=== PATIENT | female | born 1960 | race Caucasian/White ===

== ENCOUNTER → 2017-12-09 | Outpatient (CLI) | payer OTHER ==
[~2017-12-09] MED LIST: AMOX500 PO; ASPI81CH PO; ATOR10 PO; CARV6.25 PO; CODGUAEL PO; HYDACE5 PO; HYDCHL25 PO; IBUPROFEN; LISI20 PO; MULVIT; Multivitamin1 EAC1 PO; NAPR220 PO; Norco 5-325 Ta1 EACH PO; Pepcid40 MG PO; Percocet 5-3251 EACH PO; TRAM50 PO; Zofran Odt4 MG SL
[2017-12-11 02:44] LABS: Source Cervix
== END ==
LOC: LAB SHORT 16:00 → LAB 16:00
PROVIDERS: Nurse Practitioner
DX: Z01.419 Encounter for gynecological examination (general) (routine) without abnormal findings (principal)
CPT/HCPCS: G0145

== ENCOUNTER 2020-11-07 07:33 | Day surgery (SDC) | payer BC, SELFPAY ==
[2020-12-01] MEDS ORDERED: GABA100 PO (14:50)
[2020-12-01] MEDS ORDERED: MULVITA PO (14:50)
[2020-12-01] MEDS ORDERED: NYAMYC15 G1 TOP (14:51)
== END 2020-11-07 22:53 | disposition home or self-care (01) ==
LOC: MOI US 07:33 → MOI MAM 08:00 → MOI US 08:00
DX: C50.411 Malignant neoplasm of upper-outer quadrant of right female breast (principal); Z17.0 Estrogen receptor positive status [ER+]
CPT/HCPCS: 19083; 77065; 88305; 88342; 88360; A4648

== ENCOUNTER 2020-11-28 07:39 | Day surgery (SDC) | payer BC, SELFPAY ==
[2020-12-01] MEDS ORDERED: MULVITA PO (14:50)
[2020-12-01] MEDS ORDERED: GABA100 PO (14:50)
[2020-12-01] MEDS ORDERED: NYAMYC15 G1 TOP (14:51)
== END 2020-11-28 22:58 | disposition home or self-care (01) ==
LOC: MOI US 07:39 → MOI MAM 08:00 → MOI US 22:58 → NM 12-08 09:00
DX: C50.411 Malignant neoplasm of upper-outer quadrant of right female breast (principal); Z17.0 Estrogen receptor positive status [ER+]
CPT/HCPCS: 19285; 77065

== ENCOUNTER 2020-12-08 08:33 | Day surgery (SDC) | payer BC, SELFPAY ==
[~2020-12-08] VITALS: Ht 167.6 cm; Wt 134.9 kg
[~2020-12-08 08:33] MED LIST changes: +GABA100 PO; +MULVITA PO; +NYAMYC15 G1 TOP
--- NOTE | 2020-12-08 10:57 | NUR ---
Ambulatory in Day Surgery History, Chart, Medications and Allergies reviewed before start of procedure.Pre-Op teaching done. Pt verbalizes understanding. Patient States Post-Procedure ride home has been arranged.
--- NOTE | 2020-12-08 13:02 | NUR ---
12/08/20 1302 CAROL,JESSICA PTS RIGHT BREAST LUMPECTOMY SPECIMEN SENT TO XRAY PER DR MANRIQUEZ ORDER AT 1300.
--- NOTE | 2020-12-08 15:02 | NUR ---
Discharge instructions reviewed with patient. Patient verbalizes understanding. Copy given to patient to take home. Patient States Post-Procedure ride home has been arranged. Discharged via wheelchair to private car for ride home.
== END 2020-12-08 15:05 | disposition home or self-care (01) ==
LOC: ORSCMMR 08:33 → ORD 10:00 → ORSCMMR 15:05
PROVIDERS: Surgery
PROC: 07B50ZX Excision of Right Axillary Lymphatic, Open Approach, Diagnostic (ICD-10-PCS; principal; 2020-12-08 10:15)
PROC: 0HBT0ZZ Excision of Right Breast, Open Approach (ICD-10-PCS; principal; 2020-12-08 10:15)
DX: C50.411 Malignant neoplasm of upper-outer quadrant of right female breast (principal); Z17.0 Estrogen receptor positive status [ER+]; C77.3 Secondary and unspecified malignant neoplasm of axilla and upper limb lymph nodes; I10 Essential (primary) hypertension; E78.5 Hyperlipidemia, unspecified; K21.9 Gastro-esophageal reflux disease without esophagitis; E66.01 Morbid (severe) obesity due to excess calories; Z68.42 Body mass index [BMI] 45.0-49.9, adult; Z79.899 Other long term (current) drug therapy; Z79.82 Long term (current) use of aspirin
CPT/HCPCS: 38792; 76098; 88307; A9270; A9520; J0690; J1100; J2250; J2370; J2405; J2704; J3010; J7120; Q9968

== ENCOUNTER 2021-04-13 09:13 | Day surgery (SDC) | payer BC ==
[~2021-04-13] VITALS: Ht 167.6 cm; Wt 133.6 kg
--- NOTE | 2021-04-13 10:13 | NUR ---
Ambulatory in Day Surgery History, Chart, Medications and Allergies reviewed before start of procedure.Patient confirms NPO status and agrees with scheduled surgery. Patient states colon prep results clear.Lungs clear T/O to Auscultation. Patient States Post-Procedure ride home has been arranged WITH DIAL A RIDE
--- NOTE | 2021-04-13 11:08 | NUR ---
04/13/21 1108 BRENDA PORTER History, Chart, Medications and Allergies reviewed before start of procedure. 3-LEAD EKG REVIEWED WITH PHYSICIAN PRIOR TO START OF PROCEDURE. MONITOR INTACT WITH CONTINUOUS PULSE OXIMETRY AND INTERMITTENT BP. O2 VIA NONREBREATHER INTACT THROUGHOUT SEDATION/PROCEDURE. MAC WITH DR. BAILEY.
--- NOTE | 2021-04-13 13:10 | NUR ---
Patient up to Ambulate independently. Gait steady. Discharge instructions reviewed with patient. Patient verbalizes understanding. Copy given to patient to take home. Discharged via wheelchair to private car for ride home.
== END 2021-04-13 22:40 | disposition home or self-care (01) ==
LOC: ORSCMMR 09:13 → ORD 10:45 → ORSCMMR 22:40
PROVIDERS: Internal Medicine Gastroenterology
PROC: 0DBN8ZX Excision of Sigmoid Colon, Via Natural or Artificial Opening Endoscopic, Diagnostic (ICD-10-PCS; principal; 2021-04-13 10:45)
DX: K62.5 Hemorrhage of anus and rectum (principal); R10.9 Unspecified abdominal pain; K57.30 Diverticulosis of large intestine without perforation or abscess without bleeding; K64.8 Other hemorrhoids; K21.9 Gastro-esophageal reflux disease without esophagitis; I10 Essential (primary) hypertension; J45.909 Unspecified asthma, uncomplicated; E66.01 Morbid (severe) obesity due to excess calories; Z68.42 Body mass index [BMI] 45.0-49.9, adult; Z79.82 Long term (current) use of aspirin; Z79.899 Other long term (current) drug therapy
CPT/HCPCS: 88305; J2704; J7120

== ENCOUNTER 2021-07-07 07:51 | Day surgery (SDC) | payer BC ==
[~2021-07-07] VITALS: Ht 167.6 cm; Wt 134.5 kg
[~2021-07-07 07:51] MED LIST changes: +ESTEST.62T PO
[2021-07-07] MEDS ORDERED: ANASTROZOLE1 M6 PO (08:25)
--- NOTE | 2021-07-07 10:18 | NUR ---
07/07/21 1018 CAROLJESSICA ZHANG PT NOTED TO HAVE SEVERAL MISSING TEETH PRIOR TO PROCEDURE, TEETH REMAIN INTACT AND NOT CHIPPED DURING INTUBATION BY ANESTHESIA.
--- NOTE | 2021-07-07 19:00 | NUR ---
SHIFT SUMMARY PATIENT ADMITTED TO UNIT EXTENDED RECOVERY S/P BL OOPHRECTOMY BY DR LOYOLA. PATIENT IS AMBULATING IN [place], [facility], TOLERATING SOLID FOOD. PAIN CONTROLLED WITH TYLENOL AND TORADOL SCHEDULED. PATIENT DTV AT THIS TIME, NO URINE SINCE SURGERY. PATIENT FEELS THE URGE BUT CANNOT GO AT THIS TIME. BLADDER SCAN RESULTS OF 87ML. RN CONTACTED MD DR LOYOLA AND PER MD, SEE IF PATIENT CAN URINATE ON OWN UNTIL 8PM IF NOT OKAY TO CONTACT HER FOR NEW ORDERS.
[2021-07-07] MEDS ORDERED: DOCU100 PO (20:02)
[2021-07-07] MEDS ORDERED: OXYC5 PO (20:04)
--- NOTE | 2021-07-07 23:02 | NUR ---
DISCHARGE SUMMARY PT VOIDED MEETING DISCHARGE CRITERIA, ADMINISTERED PAIN MEDICATION (SEE EMAR) AND REASSESSMENT WAS IMPROVED PER PT REPORT. DISCHARGE INSTRUCTIONS GIVEN, PT REPORTS NOT HAVING ANY QUESTIONS AT THIS TIME. PT URGED TO CALL DR OR SURGICAL FLOOR NURSES DESK IF ANY QUESTIONS OR CONCERNS COME UP, BOTH CONTACT NUMBERS GIVEN TO PATIENT. IV ACCESS REMOVED AND NO OTHER IV ACCESS DEVICES IN PLACE. PT LEFT THE FLOOR ON FOOT WITH HER DAUGHTER HER RIDE WITH ALL PERSONAL POSESSIONS.
== END 2021-07-07 20:26 | disposition home or self-care (01) ==
LOC: ORSCMMR 07:51 → SURS 13:02 → ORSCMMR 20:26
PROVIDERS: Obstetrics & Gynecology
PROC: 0UT24ZZ Resection of Bilateral Ovaries, Percutaneous Endoscopic Approach (ICD-10-PCS; principal; 2021-07-07 09:30)
PROC: 0UT74ZZ Resection of Bilateral Fallopian Tubes, Percutaneous Endoscopic Approach (ICD-10-PCS; principal; 2021-07-07 09:30)
DX: N83.292 Other ovarian cyst, left side (principal); Z85.3 Personal history of malignant neoplasm of breast; E66.01 Morbid (severe) obesity due to excess calories; Z68.42 Body mass index [BMI] 45.0-49.9, adult; Z79.899 Other long term (current) drug therapy; Z79.82 Long term (current) use of aspirin; K21.9 Gastro-esophageal reflux disease without esophagitis; E78.5 Hyperlipidemia, unspecified; I10 Essential (primary) hypertension
CPT/HCPCS: 88108; 88302; 88305; A9270; J0171; J1100; J1885; J2370; J2405; J2704; J3010; J7120

== ENCOUNTER → 2022-05-02 | Outpatient (CLI) | payer OTHER ==
[~2022-05-02] MED LIST changes: +ANASTROZOLE1 M6 PO; +DOCU100 PO; +OXYC5 PO
[2022-05-03 15:09] LABS: HPV 16 Negative (Negative); HPV 18 Negative (Negative); HPV OTHER HR TYPES Negative (Negative)
== END | disposition home or self-care (01) ==
LOC: LAB SHORT 15:49 → LAB 15:49
PROVIDERS: Obstetrics & Gynecology
DX: Z01.419 Encounter for gynecological examination (general) (routine) without abnormal findings (principal)
CPT/HCPCS: 87624; G0123

== ENCOUNTER → 2023-05-13 | Outpatient (CLI) | payer OTHER ==
[2023-05-16 10:12] LABS: HPV 16 Negative (Negative); HPV 18 Negative (Negative); HPV OTHER HR TYPES Negative (Negative)
== END | disposition home or self-care (01) ==
LOC: LAB SHORT 11:24 → LAB 11:24
PROVIDERS: Obstetrics & Gynecology
DX: Z01.419 Encounter for gynecological examination (general) (routine) without abnormal findings (principal)
CPT/HCPCS: 87624; G0145